=== PATIENT | female | born 1995 | race Caucasian/White ===

== ENCOUNTER 2020-03-23 18:32 | Emergency (ER) | payer OTHER ==
[2020-03-23 18:44] VITALS: BP 112/68; PULSE 77; TEMP 98.3; BMI 23.6
== END 2020-03-23 21:00 | disposition home or self-care (01) ==
LOC: JERFT 18:32
DX: R50.9 Fever, unspecified (principal); R05 Cough; Z03.818 Encounter for observation for suspected exposure to other biological agents ruled out
CPT/HCPCS: 71046-TC-FY; 93005; 93010; 99285-25; C9803; U0003

== ENCOUNTER 2020-04-12 02:26 | Emergency (ER) | payer OTHER ==
[2020-04-12 02:39] VITALS: BMI 22.4
[2020-04-12 03:28] LABS: BASO % 0.3 % (0-2.0); EOS % 0.3 % (0-4.5); HEMOGLOBIN 14.4 GM/dL (10.7-15.3); LYMPH % 4.5 % (8-40); MCH 34.8 pg (25.7-33.7); MCHC 34.2 g/dl (32.0-36.0); MEAN CELL VOLUME 101.6 fl (80-96); MEAN PLT VOLUME 7.6 fl (7.5-11.1); MONO % 6.6 % (3.8-10.2); NEUT % 88.3 % (42.8-82.8); PLATELET COUNT 293 K/MM3 (134-434); RBC 4.14 M/mm3 (3.60-5.2); RDW 13.2 % (11.6-15.6); WHITE BLOOD COUNT 16.9 K/mm3 (4.0-10.0)
[2020-04-12 03:45] LABS: CHLORIDE 105 mmol/L (98-107); POTASSIUM 3.6 mmol/L (3.5-5.1); SODIUM 138 mmol/L (136-145)
[2020-04-12 03:47] LABS: CALCIUM 8.6 mg/dL (8.5-10.1)
[2020-04-12 03:48] LABS: ALBUMIN 3.5 g/dl (3.4-5.0); ANION GAP 6 MMOL/L (8-16); BLOOD UREA NITROGEN 7.1 mg/dL (7-18); CO2 27 mmol/L (21-32); GLUCOSE,RANDOM 101 mg/dL (74-106)
[2020-04-12 03:51] LABS: CREATININE 0.8 mg/dL (0.55-1.3); SGOT/AST 7 U/L (15-37); SGPT/ALT 15 U/L (13-61)
[2020-04-12 03:53] LABS: BILIRUBIN,TOTAL 0.9 mg/dL (0.2-1); TOT PROT 6.9 g/dl (6.4-8.2)
[2020-04-12 03:54] LABS: ALK PHOS 64 U/L (45-117)
[2020-04-12] MEDS ORDERED: ACETAMINOPHEN 1000 MG/100 ML VIAL (NON FORMULARY) IVPB ONE (04:09)
[2020-04-12] MEDS ORDERED: ACETAMINOPHEN INJECTION 100 ML IVPB ONE (04:12)
[2020-04-12 04:53] LABS: INR 1.15 (0.83-1.09); PROTHROMBIN TIME (PATIENT) 14.1 SEC (9.7-13.0)
[2020-04-12 04:56] LABS: ACTIVATED PTT 26.2 SECONDS (25.2-36.5)
[2020-04-12 04:57] LABS: LIPASE 69 U/L (73-393)
[2020-04-12 05:34] LABS: URINE APPEARANCE CLOUDY; URINE COLOR YELLOW; URINE GLUCOSE (UA) NEGATIVE (NEGATIVE)
[2020-04-12 05:35] LABS: URINE BILIRUBIN NEGATIVE (NEGATIVE); URINE KETONE NEGATIVE (NEGATIVE); URINE PROTEIN 30 (NEGATIVE)
[2020-04-12 05:36] LABS: EPI CELLS 9.3 /uL (0-25.1); HYALINE CASTS 3.72 /uL (0-3.1); URINE LEUK ESTERASE 3+ (NEGATIVE); URINE NITRITE NEGATIVE (NEGATIVE); URINE RBC 61.6 /uL (0-23.9); URINE WBC 1390.4 /uL (0-25.8)
[2020-04-12 05:37] LABS: URINE BACTERIA 36224.6 /uL (0-1359)
[2020-04-12] MEDS ORDERED: CEFTRIAXONE 1 GM in DEXTROSE 5%-WATER - 50 ML IVPB ONE (06:10)
[2020-04-12] MEDS ORDERED: CEFTRIAXONE 1 GM/50 ML BAG ONE (06:12)
[2020-04-12] MEDS ORDERED: SODIUM CHLORIDE 1,000 ML IV SCH (06:15)
[2020-04-12] MEDS ORDERED: IBUPROFEN 400 MG TABLET (FP) PO ONE ×3 (08:55→09:03)
[2020-04-12 09:30] VITALS: PULSE 87; TEMP 99.4
[2020-04-12] MEDS ORDERED: SODIUM CHLORIDE 1,000 ML IV STA (10:58)
[2020-04-12 12:39] VITALS: BP 102/65
== END 2020-04-12 12:45 | disposition home or self-care (01) ==
LOC: JER 02:26
PROC: 3E0333Z Introduction of Anti-inflammatory into Peripheral Vein, Percutaneous Approach (ICD-10-PCS; principal; 2020-04-12)
PROC: 3E03329 Introduction of Other Anti-infective into Peripheral Vein, Percutaneous Approach (ICD-10-PCS; 2020-04-12)
PROC: 3E0337Z Introduction of Electrolytic and Water Balance Substance into Peripheral Vein, Percutaneous Approach (ICD-10-PCS; 2020-04-12)
DX: R10.9 Unspecified abdominal pain (principal); N39.0 Urinary tract infection, site not specified
CPT/HCPCS: 36415; 74177-TC; 80053; 81003; 83605; 83690; 84702; 85025; 85610; 85730; 86850; 86900; 86901; 87086; 87186; 99285-25; J0131